=== PATIENT | male | born 2005 | race Caucasian/White ===

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

== ENCOUNTER 2024-10-08 13:46 | Emergency (ER) | payer OTHER, SELFPAY ==
[2024-10-08 13:54] VITALS: BP 128/68; PULSE 91; RESP 18; TEMP 36.7; O2SAT 96; BMI 36.5
--- OUTSIDE RECORDS SUMMARY | 2024-10-08 14:04 | XMS_ITS | Clinical Summary ---
Author Organization Healthcare Address [address] [place] [address] Care Team Providers Care Resource Room Teacher Name Role Phone Royer Quinn MD Primary Care Provider [phone] Family History Medical History Relation Name Comments Conversions - Other Sister reactive airway disease Relation Name Status Comments Sister Social History Tobacco Use Types Packs/Day Years Used Date Smoking Tobacco: Passive Smo ke Exposure - Never Smoker Sex and Gender Information Value Date Recorded Sex Assigned at Not on file Legal Sex Male 8:24 PM EDT Gender Identity Not on file Sexual Orientation Not on file Last Filed Vital Signs Vital Sign Reading Time Taken Comments Blood Pressure - - Pulse - - Temperature - - Respiratory Rate - - Oxygen Saturation - - Inhaled Oxygen Concentration - - Weight 57.8 kg (127 lb 6.8 oz) 10/23/2015 11:53 AM EDT Height 150 cm (4' 11.06 ) 10/23/2015 11:53 AM ED T Body Mass Index 25.69 10/23/2015 11:53 AM EDT Plan of Treatment Not on file Care Teams Resource Room Teacher Relationship Specialty Start Date End Date Royer Quinn MD [address] [place] [address] PCP - General 07/03/20
[2024-10-08 15:46] VITALS: BP 118/78; PULSE 80; RESP 20; TEMP 36.7; O2SAT 98
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
== END 2024-10-08 15:48 | disposition home or self-care (01) ==
PROVIDERS: Emergency Provider Student in an Organized Health Care Education/Training Program
DX: G56.03 Carpal tunnel syndrome, bilateral upper limbs (principal); X50.3XXA Overexertion from repetitive movements, initial encounter
CPT/HCPCS: 99282; 99283

== ENCOUNTER 2024-10-17 14:35 | Outpatient (CLI) | payer OTHER, SELFPAY ==
--- NOTE | 2024-10-17 14:35 | XR_ITS ---
FINAL REPORT CLINICAL HISTORY: bilateral wrist pain that radiates to the thumbs FINDINGS: AP, oblique, and lateral views of the right wrist were obtained. There is no prior exam for comparison. There is no acute fracture or dislocation. The joint spaces are preserved. The soft tissues are normal. IMPRESSION: No acute osseous abnormality of the right wrist. Reviewed, Interpreted and Dictated by Nelly Magallon MD Transcribed by Mayra Claire Authenticated and [facility]
--- NOTE | 2024-10-17 14:35 | XR_ITS ---
FINAL REPORT CLINICAL HISTORY: bilateral wrist pain that radiates to the thumbs FINDINGS: AP, oblique, and lateral views of the left wrist were obtained. There is no prior exam for comparison. There is no acute fracture or dislocation. The joint spaces are preserved. The soft tissues are normal. IMPRESSION: No acute osseous abnormality of the left wrist. Reviewed, Interpreted and Dictated by Nelly Magallon MD Transcribed by Mayra Claire Authenticated and [facility]
--- OUTSIDE RECORDS SUMMARY | 2024-10-17 14:38 | XMS_ITS | Clinical Summary ---
Author Organization Healthcare Address [address] [place] [address] Care Team Providers Care Precision Printing Worker Name Role Phone Royer Quinn MD Primary Care Provider Family History Medical History Relation Name Comments [...] of Treatment Not on file Care Teams Precision Printing Worker Relationship Specialty Start Date End Date Royer Quinn MD [address] [place] [address] PCP - General 07/03/20
== END 2024-10-17 23:59 | disposition home or self-care (01) ==
LOC: RAD 14:35
PROVIDERS: Visit Provider Orthopaedic Surgery
DX: M25.531 Pain in right wrist (principal); M25.532 Pain in left wrist
CPT/HCPCS: 73110

== ENCOUNTER 2024-11-01 14:21 | Emergency (ER) | payer OTHER, SELFPAY ==
[2024-11-01 14:32] VITALS: BP 120/69; PULSE 100; RESP 16; TEMP 36.4; O2SAT 98; BMI 36.5
[2024-11-01 15:21] VITALS: BP 107/79; PULSE 79; RESP 20; O2SAT 99
--- NOTE | 2024-11-01 15:26 | CT_ITS ---
FINAL REPORT TECHNIQUE: Thin section axial images were obtained from skull base to vertex without contrast. Coronal reconstruction images were obtained from the axial data. Exam was performed using dose reduction techniques such as automated exposure control, adjustment of the mA and kV according to patient size, and use of iterative reconstruction technique. CLINICAL HISTORY: Headache FINDINGS: There is no mass effect or midline shift. There is no hydrocephalus. There is no intracranial hemorrhage. The posterior fossa is without acute abnormality. The basilar cisterns are preserved. The soft tissues are without acute abnormality. No acute osseous abnormality is identified. IMPRESSION: No acute intracranial abnormality. Reviewed, Interpreted and Dictated by Nelly Magallon MD Transcribed by Mayra Claier Authenticated and [facility]
[2024-11-01 15:30] VITALS: BP 107/79; RESP 15
--- NOTE | 2024-11-01 15:31 | CT_ITS ---
FINAL REPORT TECHNIQUE: Axial CT of the brain with contrast to evaluate the dural venous sinuses. MIP reconstructed images were obtained and reviewed. This study was performed with techniques to keep radiation doses as low as reasonably achievable, (ALARA). Individualized dose reduction techniques using automated exposure control or adjustment of mA and/or kV according to the patient's size were employed. CLINICAL HISTORY: Headache FINDINGS: There is no filling defect within the dural venous sinuses. The superior and sagittal sinuses are normal as well as the transverse and sigmoid sinuses. The other visualized vascular structures are unremarkable. IMPRESSION: No evidence of dural venous sinus thrombosis. Reviewed, Interpreted and Dictated by Nelly Magallon MD Transcribed by Mayra Claire Authenticated and [facility]
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
[2024-11-01] MEDS: SODIUM CHLORIDE 0.9% 10ML SYR (RAD ONLY) 10 ML IV (15:40)
[2024-11-01] MEDS: 0.9 % SODIUM CHLORIDE 50 ML VIAL IV (15:40)
[2024-11-01] MEDS: IOPAMIDOL-370 (76%);100ML BOTTLE 80 ML IV (15:40)
[2024-11-01 15:45] LABS: Hematocrit 46.1 % (42.0-52.0); Hemoglobin 16.4 g/dL (14.1-18.0); Immature Granulocytes % 0.5 %; Mean Corpuscular HGB Conc 35.6 g/dL (31.8-35.4); Mean Corpuscular Hemoglobin 31.5 pg (27.0-31.2); Mean Corpuscular Volume 88.5 fl (80-94); Nucleated Red Blood Cells % 0 %; Platelet Count 249 K/mm3 (142-424); Red Blood Count 5.21 M/mm3 (4.60-6.20); Red Cell Distribution Width-SD 39.5 fL; White Blood Count 8.2 K/mm3 (4.5-13.0)
[2024-11-01 15:47] VITALS: BP 125/102; PULSE 62; RESP 17; O2SAT 97
[2024-11-01] MEDS: DEXAMETHASONE 4MG/ML 5ML MDV 10 MG IV (15:50)
[2024-11-01] MEDS: ACETAMINOPHEN 500MG TAB 1000 MG PO (15:50)
[2024-11-01] MEDS: KETOROLAC 30MG/ML VIAL 15 MG IV (15:53)
[2024-11-01] MEDS: PROCHLORPERAZINE 10MG/2ML VIAL 10 MG IV (15:56)
[2024-11-01 15:59] LABS: Albumin Level 4.4 g/dl (3.5-5.0); Chloride 102 mmol/L (98-107); Potassium 4.2 mmoL/L (3.5-5.1); Sodium 138 mmol/L (136-145)
[2024-11-01 16:00] VITALS: BP 115/71; PULSE 67; RESP 33; O2SAT 98
[2024-11-01 16:02] LABS: Alanine Aminotransferase 32 U/L (12-78); Albumin/Globulin Ratio 1.4 (1.1-1.8); Alkaline Phosphatase 65 U/L (38-126); Anion Gap 11.2 mEq/L (5-15); Aspartate Amino Transferase 39 U/L (17-59); Bilirubin,Total 0.5 mg/dl (0.2-1.3); Blood Urea Nitrogen 9 mg/dl (9-20); Calcium 9.2 mg/dl (8.4-10.2); Carbon Dioxide 29 mmol/L (22.0-30.0); Creatinine Clearance Estimated 202 mL/min (50-200); Creatinine,Serum 0.90 mg/dl (0.66-1.25); Estimated Glomerular Filt Rate 108 ml/min (>60); GFR (African American) 130 ML/MIN (>60); Globulin 3.1 g/dL (1.3-3.2); Glucose 114 mg/dl (74-100); Total Protein,Serum 7.5 g/dl (6.3-8.2)
[2024-11-01 16:31] VITALS: BP 119/98; PULSE 73; RESP 17; TEMP 36.4; O2SAT 95
== END 2024-11-01 16:33 | disposition left against medical advice (07) ==
PROVIDERS: Emergency Provider Student in an Organized Health Care Education/Training Program; PCP Family Medicine
DX: R51.9 Headache, unspecified (principal); J45.909 Unspecified asthma, uncomplicated; F41.9 Anxiety disorder, unspecified; F32.9 Major depressive disorder, single episode, unspecified
CPT/HCPCS: 70450; 70496; 80053; 85025; 96374; 96375; 99284; 99285; J0780; J1100; J1200; J1885; Q9967

== ENCOUNTER 2025-01-28 10:39 | Outpatient (CLI) | payer OTHER, SELFPAY ==
[2025-01-28 14:42] LABS: Coronavirus 19, PCR Not Detected (NotDetected); Influenza A, PCR Not Detected (NotDetected); Influenza B, PCR Not Detected (NotDetected)
== END 2025-01-28 23:59 ==
LOC: LAB.DROPOF 01-30 10:41
PROVIDERS: PCP Nurse Practitioner Family; Visit Provider Student in an Organized Health Care Education/Training Program
DX: J06.9 Acute upper respiratory infection, unspecified (principal)
CPT/HCPCS: 87631